=== PATIENT | female | born 1995 | race African-American/Black ===

== ENCOUNTER 2018-10-03 11:50 | Emergency (ER) | payer OTHER ==
[~2018-10-03] VITALS: Ht 167.6 cm; Wt 49.9 kg
--- NOTE | 2018-10-03 12:03 | NUR ---
ED Nurse Note: PT WALKED IN TO ER TODAY FROM HOME. AOX4. PT C/O NAUSEA AND MULTIPLE EPISODES OF VOMITING X YESTERDAY AM. PT DENIES DIARRHEA. PT ALSO C/O LOWER ABDOMINAL PAIN, 9/10 X YESTERDAY AM. ACTIVE BOWEL SOUNDS IN ALL QUADRANTS. ABDOMEN NONDISTENDED AND NONTENDER TO PALPATION. LAST BM X 2 DAYS AGO WHICH PT STATES WAS FORMED.
[2018-10-03 12:04] VITALS: BP 122/82
--- NOTE | 2018-10-03 12:15 | Emergency Room Report ---
History of Present Illness General Chief Complaint: Vomiting Source: Patient Present Illness HPI 23 year-old female patient presents the ER complaining of vomiting since yesterday. Reports vomiting symptoms began in the morning, states that she has been vomiting up food and water that she drank. Reports that she drank alcohol the night before the symptoms began and she thinks it may be related to that. Reports history of similar symptoms in the past, states that she has been seen by GI specialist but they have not been able to "find out what is wrong". Denies fever. Denies diarrhea. Reports feeling dehydrated. Denies drug use. Reports marijuana use. Denies recent travel outside the country. Denies blood in vomit or stool. Reports suprapubic abdominal pain during this time. Denies dysuria, hematuria, vaginal discharge. Denies other aggravating or relieving factors. Denies other contacts with similar symptoms. Denies any new foods in diet. Reports has been able to tolerate PO fluids without vomiting however has thrown up with food intake. Denies constipation. Allergies: Coded Allergies: No Known Allergies (Unverified , 10/03/18) Patient History Past Medical History: see triage record Last Menstrual Period: 09/19/18 Reviewed Nursing Documentation: PMH: Agreed; PSxH: Agreed Nursing Documentation-PMH Past Medical History: No Stated History Review of Systems All Other Systems: negative except mentioned in HPI Physical Exam Vital Signs Date Time Temp Pulse Resp B/P (MAP) Pulse Ox O2 Delivery O2 Flow Rate FiO2 10/03/18 11:57 98.2 70 16 119/80 99 Room Air Sp02 EP Interpretation: reviewed, normal General Appearance: well appearing, no apparent distress, alert, GCS 15, non- toxic Head: normocephalic, atraumatic Eyes: bilateral eye normal inspection, bilateral eye PERRL ENT: hearing grossly normal, normal pharynx, no angioedema, normal voice, uvula midline, moist mucus membranes Neck: full range of motion, no meningismus, no bony tend Respiratory: lungs clear, normal breath sounds, no rhonchi, no respiratory distress, no accessory muscle use, no wheezing, speaking full sentences Cardiovascular #1: regular rate, rhythm, no edema Gastrointestinal: normal bowel sounds, soft, no mass, non-distended, no guarding, no rebound, tenderness - Generalized, non-focal, other - Negative Rovsing, negative Lund, negative obturator negative heel strike Musculoskeletal: back normal, digits/nails normal, gait/station normal, normal range of motion, non-tender Neurologic: alert, oriented x3, responsive, motor strength/tone normal, sensory intact Skin: no rash Medical Decision Making PA Attestation Dr. Paez is my supervising Physician whom patient management has been discussed with. Diagnostic Impression: Primary Impression: Vomiting Additional Impressions: Hydronephrosis Abdominal pain ER Course Pt. presents to the ED c/o abdominal pain and vomiting. Ddx considered but are not limited to UTI, cholelithiasis, cholecystitis, pancreatitis, alcohol use, gastritis, dehydration, esophagitis, food poisoning, viral syndrome, cyclical vomiting syndrome, marijuana use. Negative Kernig, negative Brudzinski, low suspicion for meningitis, patient afebrile, does not require meningitis workup. Begin abdominal pain workup. Provided patient with pain medication. Negative Rovsing, negative obturator, low suspicion for appendicitis, does not require CT abdomen at this time. Vital signs: are WNL, pt. is afebrile ORDERS: CBC, CMP, Lipase, UA, and medication. ER COURSE: CBC and CMP unremarkable, no elevation in LFTs, no elevation WBCs, BUN mildly elevated, creatinine and GFR within normal limits, low suspicion for kidney failure or disease. Lipase within normal limits UA unremarkable, elevated epithelial cells, likely contaminated sample, no WBCs , patient asymptomatic, low suspicion for UTI. Urine ketones mildly elevated, likely due to dehydration and lack of food intake, provide patient with IV fluids. Urine negative Discuss results with patient Abdominal US right-sided hydronephrosis, no blockage, remainder of ultrasound negative. Low suspicion for kidney stones, does not require CT at this time. Patient reports relief of pain symptoms with medication. Patient resting comfortably no acute distress nontoxic-appearing. Patient able tolerate p.o. fluids and food. Advised patient to follow-up with GI specialist and PCP. Okay for outpatient follow-up and treatment. Advised on clear liquid diet and BRAT diet. Advised patient against alcohol and marijuana use. ER precautions given. Take Tylenol for pain symptoms. Patient nontoxic-appearing, able to ambulate independently without difficulty. Reports symptoms have improved Discuss labs and patient with Dr. Paez, agrees with treatment plan. DISCHARGE: At this time pt. is stable for d/c to home. Patient resting comfortably, in no acute distress, nontoxic appearing, talking without difficulty. Rx provided to patient. Patient to take medications as instructed Will provide with patient care instructions and any necessary prescriptions. Care plan and follow-up instructions provided. Patient instructed to follow-up with primary care provider in 3 - 5 days. Patient questions asked and answered. Patient reports understanding and agreement to treatment plan. ER precautions given. Patient instructed to return to ER immediately for any new or worsening of symptoms including but not limited to increasing SOB, persistent fever, worsening of pain symptoms, intractable vomiting, blood in stool, urine, and/or emesis. - Please note that this Emergency Department Report was dictated using [employer] cover softener technology software, occasionally this can lead to erroneous entry secondary to interpretation by the dictation equipment. Labs Test 10/03/18 12:20 White Blood Count 10.2 K/UL (4.8-10.8) Red Blood Count 3.94 M/UL (4.20-5.40) Hemoglobin 13.1 G/DL (12.0-16.0) Hematocrit 39.1 % (37.0-47.0) Mean Corpuscular Volume 99 FL (80-99) Mean Corpuscular Hemoglobin 33.2 PG (27.0-31.0) Mean Corpuscular Hemoglobin Concent 33.5 G/DL (32.0-36.0) Red Cell Distribution Width 11.2 % (11.6-14.8) Platelet Count 308 K/UL (150-450) Mean Platelet Volume 6.8 FL (6.5-10.1) Neutrophils (%) (Auto) 84.1 % (45.0-75.0) Lymphocytes (%) (Auto) 7.4 % (20.0-45.0) Monocytes (%) (Auto) 8.2 % (1.0-10.0) Eosinophils (%) (Auto) 0.0 % (0.0-3.0) Basophils (%) (Auto) 0.2 % (0.0-2.0) Urine Color Yellow Urine Appearance Cloudy Urine pH 6 (4.5-8.0) Urine Specific Himrod 1.020 (1.005-1.035) Urine Protein 4+ (NEGATIVE) Urine Glucose (UA) Negative (NEGATIVE) Urine Ketones 4+ (NEGATIVE) Urine Blood 1+ (NEGATIVE) Urine Nitrite Negative (NEGATIVE) Urine Bilirubin Negative (NEGATIVE) Urine Urobilinogen Normal MG/DL (0.0-1.0) Urine Leukocyte Esterase 1+ (NEGATIVE) Urine RBC 0-2 /HPF (0 - 2) Urine WBC 0-2 /HPF (0 - 2) Urine Squamous Epithelial Cells Moderate /LPF (NONE/OCC) Urine Bacteria Moderate /HPF (NONE) Urine HCG, Qualitative Negative (NEGATIVE) Sodium Level 139 MMOL/L (136-145) Potassium Level 3.4 MMOL/L (3.5-5.1) Chloride Level 99 MMOL/L (98-107) Carbon Dioxide Level 27 MMOL/L (21-32) Anion Gap 14 mmol/L (5-15) Blood Urea Nitrogen 23 mg/dL (7-18) Creatinine 1.1 MG/DL (0.55-1.30) Estimat Glomerular Filtration Rate > 60 mL/min (>60) Glucose Level 124 MG/DL (74-106) Calcium Level 10.5 MG/DL (8.5-10.1) Total Bilirubin 0.8 MG/DL (0.2-1.0) Aspartate Amino Transf (AST/SGOT) 17 U/L (15-37) Alanine Aminotransferase (ALT/SGPT) 20 U/L (12-78) Alkaline Phosphatase 48 U/L (46-116) Total Protein 8.7 G/DL (6.4-8.2) Albumin 5.3 G/DL (3.4-5.0) Globulin 3.4 g/dL Albumin/Globulin Ratio 1.6 (1.0-2.7) Lipase 67 U/L (73-393) CT/MRI/US Diagnostic Results CT/MRI/US Diagnostic Results : Imaging Test Ordered: Pelvic ultrasound 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 Last Vital Signs Date Time Temp Pulse Resp B/P (MAP) Pulse Ox O2 Delivery O2 Flow Rate FiO2 10/03/18 12:04 98.4 74 18 122/82 99 Room Air Status: improved Disposition: HOME, SELF-CARE Condition: Stable Scripts Ondansetron* (ZOFRAN*) 4 Mg Tablet 4 MG ORAL Q6H PRN for Nausea & Vomiting, #8 TAB Prov: Mikhail Varner 10/03/18 Acetaminophen* (TYLENOL EXTRA STRENGTH*) 500 Mg Tablet 500 MG ORAL Q8H PRN for Prn Headache/Temp > 101, #30 TAB 0 Refills Prov: Mikhail Varner 10/03/18 Patient Instructions: Abdominal Pain, Adult, [id number], Hydronephrosis, Nausea and Vomiting, Adult Additional Instructions: Followup with primary care provider in 3 -5 days. Avoid excessive alcohol intake. Followup with GI specialist. Clear liquid and BRAT diet: bananas, rice, apple sauce, toast. Take medications as directed. Patient questions asked and answered. ER precautions given, patient instructed to return to ER immediately for any new or worsening of symptoms. Mikhail Varner Oct 03, 2018 12:15
--- NOTE | 2018-10-03 12:30 | NUR ---
ED Nurse Note: US AT BEDSIDE
[2018-10-03 12:31] LABS: APPEARANCE,URINE CLOUDY; BILIRUBIN, URINE NEGATIVE (NEGATIVE); GLUCOSE, URINE (UA) NEGATIVE (NEGATIVE); KETONES,URINE 4+ (NEGATIVE); LEUKOCYTE ESTERASE ,URINE 1+ (NEGATIVE); NITRITE,URINE NEGATIVE (NEGATIVE); PH,URINE 6 (4.5-8.0); PROTEIN,URINE 4+ (NEGATIVE); UROBILINOGEN,URINE NORMAL MG/DL (0.0-1.0)
[2018-10-03 12:34] LABS: BASOPHILS % (AUTO) 0.2 % (0.0-2.0); HEMATOCRIT 39.1 % (37.0-47.0); HEMOGLOBIN 13.1 G/DL (12.0-16.0); LYMPHOCYTES % (AUTO) 7.4 % (20.0-45.0); MEAN CORPUSCULAR VOLUME 99 FL (80-99); MONOCYTES % (AUTO) 8.2 % (1.0-10.0); NEUTROPHILS % (AUTO) 84.1 % (45.0-75.0); PLATELET COUNT 308 K/UL (150-450); RED BLOOD COUNT 3.94 M/UL (4.20-5.40); RED CELL DISTRIBUTION WIDTH 11.2 % (11.6-14.8); WHITE BLOOD COUNT 10.2 K/UL (4.8-10.8)
[2018-10-03 12:39] LABS: COLOR,URINE YELLOW
[2018-10-03 12:47] LABS: ANION GAP 14 mmol/L (5-15); BLOOD UREA NITROGEN 23 mg/dL (7-18); CALCIUM 10.5 MG/DL (8.5-10.1); CARBON DIOXIDE 27 MMOL/L (21-32); CHLORIDE 99 MMOL/L (98-107); CREATININE 1.1 MG/DL (0.55-1.30); POTASSIUM 3.4 MMOL/L (3.5-5.1); SODIUM 139 MMOL/L (136-145)
[2018-10-03 12:52] LABS: ALANINE AMINOTRANSFERASE 20 U/L (12-78); ALBUMIN 5.3 G/DL (3.4-5.0); ALBUMIN/GLOBULIN RATIO 1.6 (1.0-2.7); ALKALINE PHOSPHATASE 48 U/L (46-116); ASPARTATE AMINO TRANSFERASE 17 U/L (15-37); BILIRUBIN,TOTAL 0.8 MG/DL (0.2-1.0)
[2018-10-03] MEDS ORDERED: TYLENOL EXTRA500 MG ORAL (14:14)
[2018-10-03] MEDS ORDERED: ZOFRAN4 M3 ORAL (14:14)
[2018-10-03 14:24] VITALS: BP 120/78
--- NOTE | 2018-10-03 14:29 | NUR ---
ED Nurse Note: XAVIER Baig, will give one more dose of zofran before discharge due to feeling nausea.
--- NOTE | 2018-10-03 14:29 | NUR ---
ER DISCHARGE NOTE: Patient is cleared to be discharged per ERMD, pt is aox4, on room air, with stable vital signs. pt was given dc and prescription instructions, pt was able to verbalize understanding, pt id band and iv site removed without complications. pt is able to ambulate with steady gait. pt took all belongings.
--- NOTE | 2018-10-03 15:07 | NUR ---
ED Nurse Note: denies any nausea after meds. ok to discharge with prescriptions.
--- NOTE | 2018-10-03 16:17 | Diagnostic Imaging Report ---
Indication: Abdominal pain and vomiting, abnormal renal function tests Technique: Gregg-scale and duplex images of the upper abdomen were obtained Comparison: none Findings: Gallbladder is unremarkable, without stones, wall thickening, nor pericholecystic fluid. Sonographic Lund's sign is negative. Common bile duct measures 3 mm in diameter. No intrahepatic biliary ductal dilatation. Liver demonstrates normal echogenicity, no focal abnormality. Portal vein and hepatic veins are patent. Pancreas is unremarkable. Spleen is unremarkable. Left kidney measures 9.8 cm in length. Right kidney measures 10.6 cm length. Both kidneys demonstrate normal echogenicity. There is mild hydronephrosis on the right. Is no left hydronephrosis. Echogenic punctate foci in the bilateral renal sinuses could represent nonobstructing calculi. No focal abnormality . Non-aneurysmal abdominal aorta . Impression: Mild right hydronephrosis, etiology not demonstrated Possible nonobstructive bilateral intrarenal calculi Negative for gallstones or dilated bile ducts Findings discussed by phone with nurse erica Baeza in the emergency room at the time of interpretation
== END 2018-10-03 15:08 | disposition home or self-care (01) ==
LOC: EMR 12:35
DX: R11.10 Vomiting, unspecified (principal); R10.9 Unspecified abdominal pain; N13.30 Unspecified hydronephrosis; F12.90 Cannabis use, unspecified, uncomplicated
CPT/HCPCS: 36415; 76700; 80053; 81003; 81025; 83690; 85025; 87086; 96361; 96374; 96375; 99284; J2405; S0028

== ENCOUNTER 2018-10-04 09:07 | Emergency (ER) | payer OTHER ==
[~2018-10-04] VITALS: Ht 167.6 cm; Wt 49.9 kg
[~2018-10-04 09:07] MED LIST: TYLENOL EXTRA500 MG ORAL; ZOFRAN4 M3 ORAL
--- NOTE | 2018-10-04 09:21 | Emergency Room Report ---
History of Present Illness General Chief Complaint: To Be Triaged Source: Patient Present Illness HPI 23-year-old female comes ER with complaint of having abdominal pains diffuse crampy, worse with vomiting, reports multiple bouts of vomiting, was here for the same thing yesterday felt temporary relief with IV fluids and IV Zofran but went home and unable to tolerate by mouth Zofran. She reports that she did use some synthetic marijuana his before the symptoms started 3 days ago. Allergies: Coded Allergies: No Known Allergies (Unverified , 10/03/18) Patient History Past Medical History: see triage record Reviewed Nursing Documentation: PMH: Agreed; PSxH: Agreed Review of Systems All Other Systems: negative except mentioned in HPI Physical Exam Sp02 EP Interpretation: reviewed, normal General Appearance: alert, non-toxic, mild distress - From nausea Head: normocephalic Eyes: bilateral eye normal inspection, bilateral eye PERRL, bilateral eye EOMI ENT: normal ENT inspection, hearing grossly normal, normal pharynx, no angioedema, normal voice, dry mucus membranes Neck: normal inspection, full range of motion, supple, supple/symm/no masses Respiratory: chest non-tender, lungs clear, normal breath sounds, chest symmetrical, palpation of chest normal Cardiovascular #1: normal peripheral pulses, regular rate, rhythm Cardiovascular #2: 2+ radial (R), 2+ radial (L) Gastrointestinal: normal inspection, non tender, soft, no mass, no guarding, no rebound Rectal: deferred Genitourinary: normal inspection, no CVA tenderness Musculoskeletal: back normal, gait/station normal, normal range of motion, non- tender, no calf tenderness Neurologic: alert, responsive, order entry specialist III-XII nml as tested, motor strength/tone normal, sensory intact, speech normal Psychiatric: judgement/insight normal, memory normal, mood/affect normal, anxious Skin: normal color, no rash, warm/dry, normal turgor Lymphatic: no adenopathy Medical Decision Making Diagnostic Impression: Primary Impression: Abdominal pain ER Course Patient with signs symptoms consistent with cannabinoid hyperemesis syndrome, given IM Haldol, IV fluids and IV Zofran.Patient passed by mouth challenge, was given potassium, and discharge home Disposition: HOME, SELF-CARE Condition: Stable DAVID WATT M.D Oct 04, 2018 09:21
[2018-10-04] MEDS ORDERED: Haloperidol 5mg/ml Inj IM ONE (09:30)
[2018-10-04 09:44] VITALS: BP 92/50
--- NOTE | 2018-10-04 09:47 | NUR ---
ED Nurse Note:iv meds and fluids given blood sent to labs
[2018-10-04 10:03] LABS: BASOPHILS % (AUTO) 0.6 % (0.0-2.0); EOSINOPHILS % (AUTO) 0.1 % (0.0-3.0); HEMATOCRIT 40.7 % (37.0-47.0); HEMOGLOBIN 13.6 G/DL (12.0-16.0); LYMPHOCYTES % (AUTO) 13.5 % (20.0-45.0); MEAN CORPUSCULAR VOLUME 100 FL (80-99); MONOCYTES % (AUTO) 9.5 % (1.0-10.0); NEUTROPHILS % (AUTO) 76.4 % (45.0-75.0); PLATELET COUNT 285 K/UL (150-450); RED BLOOD COUNT 4.08 M/UL (4.20-5.40); WHITE BLOOD COUNT 8.9 K/UL (4.8-10.8)
[2018-10-04 10:18] LABS: ANION GAP 8 mmol/L (5-15); BLOOD UREA NITROGEN 17 mg/dL (7-18); CALCIUM 10.3 MG/DL (8.5-10.1); CARBON DIOXIDE 27 MMOL/L (21-32); CHLORIDE 100 MMOL/L (98-107); POTASSIUM 3.3 MMOL/L (3.5-5.1); SODIUM 135 MMOL/L (136-145)
[2018-10-04 10:22] LABS: ALANINE AMINOTRANSFERASE 20 U/L (12-78); ALBUMIN 5.3 G/DL (3.4-5.0); ALBUMIN/GLOBULIN RATIO 1.5 (1.0-2.7); ALKALINE PHOSPHATASE 49 U/L (46-116); ASPARTATE AMINO TRANSFERASE 19 U/L (15-37)
[2018-10-04 11:27] VITALS: BP 102/55
== END 2018-10-04 11:00 | disposition home or self-care (01) ==
LOC: EMR 10:08
DX: R10.9 Unspecified abdominal pain (principal); R11.10 Vomiting, unspecified; F12.90 Cannabis use, unspecified, uncomplicated
CPT/HCPCS: 36415; 80053; 83690; 85025; 96361; 96372; 96374; 99284; J1630; J2405; J8499